=== PATIENT | female | born 1995 | race Caucasian/White ===

== ENCOUNTER 2018-05-17 13:39 | Emergency (ER) | payer OTHER, MEDICAID ==
[~2018-05-17] VITALS: Ht 160 cm; Wt 106.6 kg
[~2018-05-17 13:39] MED LIST: BENTYL20 MG PO; CIPRO500 MG PO; FLAGYL500 MG PO; NORCO 5-325 TA1 EACH PO; ZOFRAN ODT4 MG PO
[2018-05-17 14:00] LABS: URINE BILIRUBIN NEGATIVE (Negative); URINE BLOOD NEGATIVE (Negative); URINE CLARITY CLEAR; URINE COLOR YELLOW; URINE GLUCOSE-RANDOM NEGATIVE (Negative); URINE KETONES 1+ (Negative); URINE LEUKOCYTES NEGATIVE (Negative); URINE NITRITE NEGATIVE (Negative); URINE PROTEIN TRACE (Negative); URINE SPECIFIC GRAVITY >= 1.030 (1.005-1.030)
[2018-05-17 14:03] LABS: ABSOLUTE EOSINOPHILS 0.4 thou/uL (0.0-0.7); ABSOLUTE LYMPHOCYTES 2.2 thou/uL (0.8-5.3); ABSOLUTE MONOCYTES 0.8 thou/uL (0.0-1.2); ABSOLUTE NEUTROPHILS 9.4 thou/uL (1.6-8.1); BASOPHILS 0.4 %; EOSINOPHILS 3.2 %; HEMATOCRIT 35.6 % (37.0-47.0); HEMOGLOBIN 11.4 gm/dL (12.0-15.0); LYMPHOCYTES 17.2 %; MCH 23.4 pg (26.0-34.0); MCHC 31.9 g/dL (28.0-37.0); MCV 73.5 fL (80.0-100.0); MONOCYTES 6.5 %; MPV 7.7 fl. (7.2-11.1); NUCLEATED RBCS 0 /100WBC; PLATELET COUNT* 470 thou/uL (150-400); POLYS 72.7 %; RBC 4.85 mil/uL (4.20-5.00); RDW-CV 17.1 % (10.5-14.5); WBC 12.9 thou/uL (4.0-11.0)
[2018-05-17 14:13] LABS: CALCIUM 8.4 mg/dL (8.5-10.1); CREATININE 0.7 mg/dL (0.6-1.3); POTASSIUM 3.6 mmol/L (3.5-5.1)
[2018-05-17 14:18] LABS: ALBUMIN 3.1 g/dL (3.4-5.0); TOTAL BILIRUBIN 0.3 mg/dL (<0.1-1.0); TOTAL PROTEIN 7.3 g/dL (6.4-8.2)
[2018-05-17 19:41] VITALS: BP 113/53
== END 2018-05-17 19:45 | disposition home or self-care (01) ==
LOC: M.ERS 13:39
PROVIDERS: Nurse Practitioner Family
DX: O34.81 Maternal care for other abnormalities of pelvic organs, first trimester (principal); N83.201 Unspecified ovarian cyst, right side; Z3A.09 9 weeks gestation of pregnancy; Z90.49 Acquired absence of other specified parts of digestive tract; R55 Syncope and collapse

== ENCOUNTER 2018-06-12 16:21 | Emergency (ER) | payer MEDICAID ==
[~2018-06-12] VITALS: Ht 160 cm; Wt 108.9 kg
[2018-06-12] MEDS ORDERED: PRENATAL (17:01)
[2018-06-12 17:18] LABS: URINE BILIRUBIN NEGATIVE (Negative); URINE BLOOD NEGATIVE (Negative); URINE CLARITY SL CLOUDY; URINE COLOR YELLOW; URINE GLUCOSE-RANDOM NEGATIVE (Negative); URINE KETONES NEGATIVE (Negative); URINE LEUKOCYTES-REFLEX NEGATIVE (Negative); URINE NITRITE-REFLEX NEGATIVE (Negative); URINE PROTEIN NEGATIVE (Negative); URINE SPECIFIC GRAVITY >= 1.030 (1.005-1.030); URINE UROBILINOGEN 0.2 E.U./dl (0.2-1.0)
[2018-06-12 17:22] LABS: SQUAMOUS 4-10 Moderate /LPF (0-3)
[2018-06-12 17:22] LABS: ABSOLUTE BASOPHILS 0.1 thou/uL (0.0-0.2); ABSOLUTE EOSINOPHILS 0.3 thou/uL (0.0-0.7); ABSOLUTE MONOCYTES 0.6 thou/uL (0.0-1.2); ABSOLUTE NEUTROPHILS 7.5 thou/uL (1.6-8.1); BASOPHILS 0.8 %; EOSINOPHILS 2.9 %; HEMATOCRIT 34.5 % (37.0-47.0); HEMOGLOBIN 11.1 gm/dL (12.0-15.0); LYMPHOCYTES 26.2 %; MCHC 32.1 g/dL (28.0-37.0); MCV 74.6 fL (80.0-100.0); MONOCYTES 5.4 %; MPV 7.7 fl. (7.2-11.1); NUCLEATED RBCS 0 /100WBC; PLATELET COUNT* 469 thou/uL (150-400); POLYS 64.7 %; RBC 4.63 mil/uL (4.20-5.00); RDW-CV 17.6 % (10.5-14.5); WBC 11.6 thou/uL (4.0-11.0)
[2018-06-12 17:23] LABS: BACTERIA-REFLEX 1-9 Few /HPF (None Seen); CASTS None Seen /LPF (None Seen); CRYSTALS None Seen /LPF (None Seen); MUCUS 4-6 Moderate strn/LPF (None Seen); URINE RBC 0-2 Rare /HPF (0-2); URINE WBC-REFLEX 0-5 Rare /HPF (0-5)
[2018-06-12 17:43] LABS: CALCIUM 9.1 mg/dL (8.5-10.1); CREATININE 0.7 mg/dL (0.6-1.3); POTASSIUM 3.5 mmol/L (3.5-5.1)
[2018-06-12 17:47] LABS: ALBUMIN 3.1 g/dL (3.4-5.0); TOTAL BILIRUBIN 0.2 mg/dL (<0.1-1.0); TOTAL PROTEIN 7.5 g/dL (6.4-8.2)
[2018-06-12] MEDS ORDERED: ZOFRAN ODT4 MG PO (18:00)
[2018-06-12 18:17] VITALS: BP 125/71
== END 2018-06-12 18:18 | disposition home or self-care (01) ==
LOC: M.ERS 16:21
PROVIDERS: Nurse Practitioner Family
DX: O26.891 Other specified pregnancy related conditions, first trimester (principal); Z3A.13 13 weeks gestation of pregnancy; R10.13 Epigastric pain; S39.011A Strain of muscle, fascia and tendon of abdomen, initial encounter; X58.XXXA Exposure to other specified factors, initial encounter; Y93.89 Activity, other specified; Y92.89 Other specified places as the place of occurrence of the external cause; Y99.8 Other external cause status; Z90.49 Acquired absence of other specified parts of digestive tract

== ENCOUNTER 2018-07-06 12:27 | Emergency (ER) | payer OTHER, MEDICAID ==
[~2018-07-06] VITALS: Ht 160 cm; Wt 111.6 kg
[~2018-07-06 12:27] MED LIST changes: +PRENATAL
[2018-07-06 12:57] LABS: ABSOLUTE EOSINOPHILS 0.2 thou/uL (0.0-0.7); ABSOLUTE LYMPHOCYTES 2.2 thou/uL (0.8-5.3); ABSOLUTE MONOCYTES 0.5 thou/uL (0.0-1.2); ABSOLUTE NEUTROPHILS 7.1 thou/uL (1.6-8.1); BASOPHILS 0.4 %; EOSINOPHILS 2.3 %; HEMATOCRIT 33.4 % (37.0-47.0); LYMPHOCYTES 22.1 %; MCH 25.2 pg (26.0-34.0); MCHC 32.9 g/dL (28.0-37.0); MCV 76.6 fL (80.0-100.0); MONOCYTES 5.3 %; MPV 8.1 fl. (7.2-11.1); NUCLEATED RBCS 0 /100WBC; PLATELET COUNT* 399 thou/uL (150-400); POLYS 69.9 %; RBC 4.36 mil/uL (4.20-5.00); RDW-CV 16.9 % (10.5-14.5); WBC 10.2 thou/uL (4.0-11.0)
[2018-07-06 12:59] LABS: CREATININE 0.8 mg/dL (0.6-1.3); POTASSIUM 3.5 mmol/L (3.5-5.1)
[2018-07-06 13:04] LABS: ALBUMIN 2.8 g/dL (3.4-5.0); TOTAL BILIRUBIN 0.3 mg/dL (<0.1-1.0)
[2018-07-06 13:40] LABS: URINE BILIRUBIN NEGATIVE (Negative); URINE BLOOD NEGATIVE (Negative); URINE CLARITY CLEAR; URINE COLOR YELLOW; URINE GLUCOSE-RANDOM NEGATIVE (Negative); URINE KETONES NEGATIVE (Negative); URINE LEUKOCYTES-REFLEX NEGATIVE (Negative); URINE NITRITE-REFLEX NEGATIVE (Negative); URINE PROTEIN NEGATIVE (Negative); URINE SPECIFIC GRAVITY 1.025 (1.005-1.030); URINE UROBILINOGEN 0.2 E.U./dl (0.2-1.0)
[2018-07-06 15:24] VITALS: BP 107/56
--- NOTE | 2018-07-06 16:05 | EKG ---
[place] [address] ELECTROCARDIOGRAM REPORT Name: NOELLE FIERRO Room: [facility]#: [id number] Admission: 07/06/18 Attend Phys: Discharge: 07/06/18 Date of : [birth year] Report #: [id number] THIS REPORT FOR: //name// [facility] ED Test Date: 2018-07-06 Test Time: 14:57:53 Pat Name: NOELLE FIERRO Department: Room: Gender: F Tip Fixer: Jaleel SHIRLEY : 1995 Requested By: Carly Koenig Order Number: [id number] MD: Lico Carmona Measurements Intervals [place] Rate: 64 P: 9 OR: 153 QRS: 34 QRSD: 93 T: 28 QT: 407 QTc: 420 Interpretive Statements Sinus rhythm No previous ECG available for comparison Electronically Signed On 07-06-2018 16:05:45 JEWEL SUPERVIS[employer] by Lico Carmona [email or web address] <ELECTRONICALLY SIGNED> By: Lico Carmona MD, [facility] 07/06/18 1605 [id number] 1457 Lico Carmona MD, FACC /EPI
== END 2018-07-06 15:25 | disposition home or self-care (01) ==
LOC: M.ERS 12:27
PROVIDERS: Physician Assistant
DX: O21.9 Vomiting of pregnancy, unspecified (principal); Z3A.18 18 weeks gestation of pregnancy

== ENCOUNTER 2018-08-01 20:06 | Emergency (ER) | payer MEDICAID ==
[~2018-08-01] VITALS: Ht 160 cm; Wt 113.4 kg
[2018-08-01 20:32] LABS: URINE BILIRUBIN NEGATIVE (Negative); URINE BLOOD NEGATIVE (Negative); URINE CLARITY CLEAR; URINE COLOR YELLOW; URINE GLUCOSE-RANDOM NEGATIVE (Negative); URINE KETONES TRACE (Negative); URINE LEUKOCYTES-REFLEX TRACE (Negative); URINE NITRITE-REFLEX NEGATIVE (Negative); URINE PROTEIN NEGATIVE (Negative); URINE SPECIFIC GRAVITY >= 1.030 (1.005-1.030); URINE UROBILINOGEN 0.2 E.U./dl (0.2-1.0)
[2018-08-01 20:38] LABS: BACTERIA-REFLEX 1-9 Few /HPF (None Seen); CALCIUM OXALATE 0-3 Few /LPF (None Seen); CASTS None Seen /LPF (None Seen); SQUAMOUS >10 Many /LPF (0-3); URINE RBC 3-10 Few /HPF (0-2); URINE WBC-REFLEX 0-5 Rare /HPF (0-5)
[2018-08-01 21:30] VITALS: BP 136/85
== END 2018-08-01 21:30 | disposition home or self-care (01) ==
LOC: M.ERS 20:06
PROVIDERS: Emergency Medicine
DX: O26.892 Other specified pregnancy related conditions, second trimester (principal); M25.551 Pain in right hip; M25.552 Pain in left hip; Z90.49 Acquired absence of other specified parts of digestive tract; Z3A.20 20 weeks gestation of pregnancy